=== PATIENT | male | born 1950 | race Caucasian/White ===

== ENCOUNTER → 2018-02-13 | Outpatient (CLI) | payer MEDICARE | LOC: M RAD 17:08 | DX: S72.425A Nondisplaced fracture of lateral condyle of left femur, initial encounter for closed fracture (principal); X58.XXXA Exposure to other specified factors, initial encounter; Y92.9 Unspecified place or not applicable | CPT/HCPCS: 73700 ==

== ENCOUNTER 2018-03-18 08:38 | Day surgery (SDC) | payer MEDICARE ==
[2018-03-18] MEDS: NS 1,000 ML IV (08:57)
[2018-03-18] MEDS ORDERED: PROPOFOL 200 MG/20 ML VIAL As Ordered (08:58)
[2018-03-18] MEDS ORDERED: LIDOCAINE 2% INJ 100 MG/5 ML SDV (FOR ANES.) As Ordered (09:38)
== END 2018-03-18 11:21 | disposition home or self-care (01) ==
LOC: M OPP 08:38
DX: Z12.11 Encounter for screening for malignant neoplasm of colon (principal); Z86.010 Personal history of colon polyps; K64.0 First degree hemorrhoids; I10 Essential (primary) hypertension; I25.10 Atherosclerotic heart disease of native coronary artery without angina pectoris; Z95.5 Presence of coronary angioplasty implant and graft; E78.5 Hyperlipidemia, unspecified; D11.0 Benign neoplasm of parotid gland; E53.8 Deficiency of other specified B group vitamins; H25.9 Unspecified age-related cataract; Z87.19 Personal history of other diseases of the digestive system; Z87.891 Personal history of nicotine dependence; Z79.82 Long term (current) use of aspirin; Z79.899 Other long term (current) drug therapy; Z79.02 Long term (current) use of antithrombotics/antiplatelets
CPT/HCPCS: G0105

== ENCOUNTER → 2025-06-15 | Outpatient (RCR) ==
[~2025-06-15] MED LIST: ANTIHISTAMINE PO; ASA PO; ATOR80TA59 PO; B COCAP5 PO; CLOP75TA2 PO; CYAN1000VL IM; ECOT81TA5 PO; METO1TAB32 PO; MULTCAP PO; ULTR50TA8 PO
== END ==
LOC: M EMPSSV 05-19 14:27
PROVIDERS: ATTEND Family Medicine
DX: Z20.828 Contact with and (suspected) exposure to other viral communicable diseases (principal)